=== PATIENT | female | born 1950 | race Caucasian/White ===

== ENCOUNTER 2017-12-23 11:00 | Outpatient (CLI) | payer MEDICARE, OTHER ==
[2017-12-25] MEDS ORDERED: SENN-29 PO (10:06)
[2017-12-25] MEDS ORDERED: PANT40TA4 PO (10:06)
[2017-12-25] MEDS ORDERED: METO10TA3 PO (10:06)
[2017-12-25] MEDS ORDERED: OXYC15TA88 PO (10:06)
[2017-12-25] MEDS ORDERED: LEVE500T PO (10:06)
[2017-12-25] MEDS ORDERED: FERR325T32 PO (10:06)
[2017-12-25] MEDS ORDERED: OXYC30TA85 PO (10:06)
== END 2017-12-23 23:59 | disposition home or self-care (01) ==
LOC: 64 CT 11:00
PROVIDERS: ATTEND Orthopaedic Surgery
DX: S42.232A 3-part fracture of surgical neck of left humerus, initial encounter for closed fracture (principal); M25.512 Pain in left shoulder; W01.0XXA Fall on same level from slipping, tripping and stumbling without subsequent striking against object, initial encounter; Y93.89 Activity, other specified; Y92.89 Other specified places as the place of occurrence of the external cause; Y99.8 Other external cause status
CPT/HCPCS: 73200

== ENCOUNTER 2017-12-27 10:57 | Inpatient (IN) | payer MEDICARE, OTHER ==
[2017-12-25 10:29] LABS: BASOPHILS # (AUTO) 0.1 X10'3 (0-0.2); BASOPHILS % (AUTO) 0.9 % (0-1); EOSINOPHILS # (AUTO) 0.1 X10'3 (0-0.9); EOSINOPHILS % (AUTO) 2.1 % (0-6); LYMPHOCYTES # (AUTO) 0.7 X10'3 (1.1-4.8); LYMPHOCYTES % (AUTO) 10.7 % (21-51); MEAN CORPUSCULAR HEMOGLOBIN 32.3 PG (27.0-31.0); MEAN CORPUSCULAR VOLUME 92.2 FL (78-98); MEAN PLATELET VOLUME 9.2 FL (7.4-10.4); MONOCYTES % (AUTO) 14.9 % (2-12); NEUTROPHILS % (AUTO) 71.4 % (42-75); PRE OP HEMATOCRIT 34.1 % (35.0-45.0); PRE OP HEMOGLOBIN 11.9 g/dL (12.0-16.0); PRE OP PLATELET COUNT 242 X10'3 (140-440); RED CELL DISTRIBUTION WIDTH 12.9 % (11.5-14.5)
[2017-12-25 10:33] LABS: PRE OP PROTIME 10.1 SECONDS (9.0-12.0)
[2017-12-25 10:42] LABS: ALBUMIN 3.3 G/DL (3.4-5.0); ALKALINE PHOSPHATASE 87 IU/L (46-116); BLOOD UREA NITROGEN 9 MG/DL (7-18); BUN/CREATININE RATIO 10.2 (6.6-38.0); CALCIUM 9.3 MG/DL (8.5-10.1); CHLORIDE 103 MMOL/L (99-107); CREATININE 0.88 MG/DL (0.40-0.90); PRE OP ALT 9 U/L (30-65); PRE OP ANION GAP 6 (8-16); PRE OP AST 14 U/L (10-37); PRE OP BILIRUB, TOTAL 0.4 MG/DL (0.0-1.0); PRE OP GLUCOSE 103 MG/DL (70-104); PRE OP POTASSIUM 3.9 MMOL/L (3.4-5.1); PRE OP SODIUM 139 MMOL/L (135-145); TOTAL CARBON DIOXIDE 30.5 MMOL/L (24-32); TOTAL PROTEIN 6.7 G/DL (6.4-8.2); eGFR 64 ML/MIN
[2017-12-27] VITALS (20 sets, daily range): BP systolic 123–180; BP diastolic 54–90
[~2017-12-27] VITALS: Ht 160 cm; Wt 66.3 kg
[~2017-12-27 10:57] MED LIST: FERR325T32 PO; LEVE500T PO; METO10TA3 PO; OXYC15TA88 PO; OXYC30TA85 PO; PANT40TA4 PO; SENN-29 PO; cefazolin/dext.iso 2gm/50ml 50 ML IV ONE; famotidine 20mg tablet PO ONE; ringers solution, lacted 1,000 ML IV SCH
[2017-12-27] MEDS ORDERED: vancomycin 1,000mg inj ONE (11:00)
[2017-12-27] MEDS ORDERED: ketorolac trometh. 30mg/ml inj. ONE (11:00)
[2017-12-27] MEDS ORDERED: ROPIVAcaine 0.5% (5mg/ml) 30ml vial ONE ×2 (11:01→13:18)
[2017-12-27] MEDS ORDERED: LIDOcaine 1% (10mg/ml) 2ml vial ONE (11:10)
[2017-12-27] MEDS ORDERED: BROM3DRO (12:12)
[2017-12-27] MEDS ORDERED: DIFL5DRO LEFTEYE (12:12)
[2017-12-27] MEDS ORDERED: BESI5DRO RIGHTEYE (12:12)
[2017-12-27] MEDS ORDERED: BESI5DRO LEFTEYE (12:23)
[2017-12-27] MEDS ORDERED: cloNIDine hcl/PF 100mcg/ml inj ONE (13:18)
[2017-12-27] MEDS ORDERED: sevoflurane 250ml liquid IH ONE (13:26)
[2017-12-27] MEDS ORDERED: midazolam 2 mg/2 ml injection ONE ×2 (13:26→13:27)
[2017-12-27] MEDS ORDERED: fentaNYL/PF 50MCG/1 ML 2ML syringe ONE (13:26)
[2017-12-27] MEDS ORDERED: propofol inj 20 ML IV ONE (13:27)
[2017-12-27] MEDS ORDERED: tranexamic acid inj. 660 MG in normal saline 100ml IV soln 93.4 ML IV ONE ×4 (13:30)
[2017-12-27] MEDS ORDERED: ringers solution, lacted 1,000 ML IV SCH (14:42)
[2017-12-27] MEDS ORDERED: ondansetron/PF 4mg/2ml inj IV PRN ×2 (14:45→15:30)
[2017-12-27] MEDS ORDERED: morphine 2 MG/ML inj. syringe IV PRN ×2 (14:45)
[2017-12-27] MEDS ORDERED: HYDROmorphone 1 mg/ml syringe IV PRN ×3 (14:45→15:30)
[2017-12-27] MEDS ORDERED: ePHEDrine 50MG/ML INJ. ONE (15:03)
[2017-12-27] MEDS ORDERED: acetaminophen 325mg tablet PO PRN (15:30)
[2017-12-27] MEDS ORDERED: oxyCODONE IR 5mg (immed. release) tablet PO PRN ×2 (15:30)
[2017-12-27] MEDS ORDERED: pantoprazole 40mg Tablet.DR PO SCH (15:30)
[2017-12-27] MEDS ORDERED: tranexamic acid inj. 660 MG in normal saline 100ml IV soln 100 ML IV ONE (15:30)
[2017-12-27] MEDS ORDERED: magnesium hydroxide 30ml (MOM) UD suspension PO PRN (15:30)
[2017-12-27] MEDS ORDERED: diphenhydrAMINE 25mg capsule PO PRN ×2 (15:30)
[2017-12-27] MEDS ORDERED: bisacodyl 10mg suppository rectal RC PRN (15:30)
[2017-12-27] MEDS: DIFLUPREDNATE 0.05% LEFTEYE SCH ×2 (17:00→21:00)
[2017-12-27] MEDS: oxyCODONE IR 5mg (immed. release) tablet PO SCH ×2 (17:00→21:00)
[2017-12-27] MEDS: OPTH LEFTEYE SCH ×2 (17:00→21:00)
[2017-12-27] MEDS: oxyCODONE SR 10mg (sust. release) tab PO SCH (20:18)
[2017-12-27] MEDS: acetaminophen 325mg tablet PO SCH (20:18)
[2017-12-27] MEDS: levetiracetam 250mg tablet PO SCH (20:19)
[2017-12-27] MEDS: ferrous sulfate 325mg tablet PO SCH (20:19)
[2017-12-27] MEDS: celeCOXIB 100mg capsule PO SCH (20:19)
[2017-12-27] MEDS: potassium cl 20mEq in 1/2 NS 1,000 ML IV SCH ×2 (20:20→23:30)
[2017-12-27] MEDS: gabapentin 300mg capsule PO SCH (20:21)
[2017-12-27] MEDS: sennosides/docusate sodium tablet PO SCH (20:25)
[2017-12-27] MEDS ORDERED: metoclopramide 10mg tablet PO SCH (21:00)
[2017-12-27] MEDS ORDERED: sennosides 8.6mg tablet PO SCH (21:00)
[2017-12-27] MEDS: cefazolin 1gm/NS 100mL 100 ML IV SCH (22:56)
[2017-12-28 02:00] VITALS: BP 154/73
[2017-12-28] MEDS: acetaminophen 325mg tablet PO SCH ×2 (02:00→08:01)
[2017-12-28] MEDS: cefazolin 1gm/NS 100mL 100 ML IV SCH (04:55)
[2017-12-28 05:13] LABS: BASOPHILS % (AUTO) 0.2 % (0-1); EOSINOPHILS % (AUTO) 0.2 % (0-6); HEMATOCRIT 33.2 % (35.0-45.0); HEMOGLOBIN 11.3 g/dl (12.0-16.0); LYMPHOCYTES # (AUTO) 0.7 X10'3 (1.1-4.8); LYMPHOCYTES % (AUTO) 8.5 % (21-51); MEAN CORPUSCULAR HEMOGLOBIN 31.7 PG (27.0-31.0); MEAN CORPUSCULAR HGB CONC 34.1 % (33.0-36.5); MEAN CORPUSCULAR VOLUME 92.9 FL (78-98); MEAN PLATELET VOLUME 9.1 FL (7.4-10.4); MONOCYTES % (AUTO) 11.8 % (2-12); NEUTROPHILS # (AUTO) 6.9 X10'3 (1.8-7.7); NEUTROPHILS % (AUTO) 79.3 % (42-75); PLATELET COUNT 279 X10'3 (140-440); RED BLOOD COUNT 3.57 X10'6 (4.20-5.60); RED CELL DISTRIBUTION WIDTH 13.3 % (11.5-14.5); WHITE BLOOD COUNT 8.7 X10'3 (4.5-11.0)
[2017-12-28 05:59] LABS: ANION GAP 10 (8-16); CHLORIDE 99 MMOL/L (99-107); POTASSIUM 4.6 MMOL/L (3.5-5.1); SODIUM 135 MMOL/L (135-145); TOTAL CARBON DIOXIDE 25.9 MMOL/L (24-32)
[2017-12-28 06:00] VITALS: BP 147/69
[2017-12-28] MEDS: potassium cl 20mEq in 1/2 NS 1,000 ML IV SCH (07:30)
[2017-12-28] MEDS: celeCOXIB 100mg capsule PO SCH (07:59)
[2017-12-28] MEDS: ferrous sulfate 325mg tablet PO SCH (08:00)
[2017-12-28] MEDS ORDERED: BESIFLOXACIN HYDROCHLORIDE LEFTEYE SCH (08:00)
[2017-12-28] MEDS: DIFLUPREDNATE 0.05% LEFTEYE SCH (08:00)
[2017-12-28] MEDS: gabapentin 300mg capsule PO SCH (08:00)
[2017-12-28] MEDS: levetiracetam 250mg tablet PO SCH (08:00)
[2017-12-28] MEDS: OPTH LEFTEYE SCH (08:00)
[2017-12-28] MEDS: oxyCODONE SR 10mg (sust. release) tab PO SCH (08:01)
[2017-12-28] MEDS: sennosides/docusate sodium tablet PO SCH (08:01)
[2017-12-28] MEDS: oxyCODONE IR 5mg (immed. release) tablet PO SCH (08:01)
[2017-12-28] MEDS ORDERED: aspirin 325mg tablet PO SCH (08:30)
[2017-12-28 10:00] VITALS: BP 131/73
[2017-12-28] MEDS ORDERED: OXYC-658 PO (11:10)
[2017-12-28] MEDS ORDERED: ASPI-1 PO (11:17)
[2017-12-29] MEDS ORDERED: acetaminophen 325mg tablet PO PRN (15:30)
== END 2017-12-28 12:25 | disposition home or self-care (01) | DRG 493 ==
LOC: PAS 10:57 → ORTHO 4S 15:34
PROVIDERS: ADMIT Orthopaedic Surgery; ATTEND Orthopaedic Surgery
PROC: 3E0T3BZ Introduction of Anesthetic Agent into Peripheral Nerves and Plexi, Percutaneous Approach (ICD-10-PCS; 2017-12-27)
PROC: 0PSD04Z Reposition Left Humeral Head with Internal Fixation Device, Open Approach (ICD-10-PCS; principal; 2017-12-27 13:26)
DX: S42.232A 3-part fracture of surgical neck of left humerus, initial encounter for closed fracture (principal); D62 Acute posthemorrhagic anemia; W01.0XXA Fall on same level from slipping, tripping and stumbling without subsequent striking against object, initial encounter; K21.9 Gastro-esophageal reflux disease without esophagitis; G89.29 Other chronic pain; M54.9 Dorsalgia, unspecified; Z79.899 Other long term (current) drug therapy; Z88.8 Allergy status to other drugs, medicaments and biological substances; Z87.891 Personal history of nicotine dependence; Y93.89 Activity, other specified; Y92.89 Other specified places as the place of occurrence of the external cause; Y99.8 Other external cause status
CPT/HCPCS: 36415; 73060; 76001; 80051; 80053; 85025; 85610; 85730; 86885; 86900; 86901; 87070; 93005; 97116; 97161; 97530; A4565; A7000; C1713; J0690; J0735; J1170; J1885; J2250; J2704; J2795; J3010; J3370; J3490; J7030; J7120; J8597

== ENCOUNTER 2020-02-22 07:24 | Day surgery (SDC) | payer MEDICARE, OTHER ==
[~2020-02-22] VITALS: Ht 160 cm; Wt 68.1 kg
[2020-02-22] VITALS (11 sets, daily range): BP systolic 104–133; BP diastolic 62–80
[~2020-02-22 07:24] MED LIST changes: +ASPI-1 PO; +BESI5DRO LEFTEYE; +BROM3DRO; +DIFL5DRO LEFTEYE; +OXYC-658 PO; -OXYC15TA88 PO; -cefazolin/dext.iso 2gm/50ml 50 ML IV ONE; -famotidine 20mg tablet PO ONE; -ringers solution, lacted 1,000 ML IV SCH
[2020-02-22] MEDS ORDERED: normal saline 1000ml 1,000 ML IV SCH (07:45)
[2020-02-22] MEDS ORDERED: MIDAZolam 1mg/ml 10ml vial IV ONE (07:45)
[2020-02-22] MEDS ORDERED: fentaNYL/PF 50MCG/1 ML 2ML syringe IV ONE (07:45)
[2020-02-22] MEDS ORDERED: APIX5TAB3 PO (08:07)
[2020-02-22] MEDS ORDERED: SOTA80TA PO (08:07)
[2020-02-22] MEDS ORDERED: VITAMIN D PO (08:07)
[2020-02-22] MEDS ORDERED: PREG150C PO (08:07)
[2020-02-22] MEDS ORDERED: CYAN50008 PO (08:07)
[2020-02-22] MEDS ORDERED: FURO-150 PO (08:07)
[2020-02-22 08:29] LABS: ALBUMIN 4.1 G/DL (3.4-5.0); ANION GAP 7 (8-16); BASOPHILS % (AUTO) 0.6 % (0-1); BLOOD UREA NITROGEN 7 MG/DL (7-18); BUN/CREATININE RATIO 7.2 (6.6-38.0); CALCIUM 8.9 MG/DL (8.5-10.1); CHLORIDE 106 MMOL/L (99-107); CREATININE 0.97 MG/DL (0.40-0.90); EOSINOPHILS # (AUTO) 0.1 X10'3 (0-0.9); EOSINOPHILS % (AUTO) 2.7 % (0-6); GLUCOSE 86 MG/DL (70-104); HEMATOCRIT 45.4 % (35.0-45.0); LYMPHOCYTES # (AUTO) 1.4 X10'3 (1.1-4.8); LYMPHOCYTES % (AUTO) 35.7 % (21-51); MEAN CORPUSCULAR HEMOGLOBIN 31.8 PG (27.0-31.0); MEAN CORPUSCULAR HGB CONC 33.1 g/dL (33.0-36.5); MEAN CORPUSCULAR VOLUME 96.1 FL (78-98); MEAN PLATELET VOLUME 8.4 FL (7.4-10.4); MONOCYTES # (AUTO) 0.6 X10'3 (0-0.9); NEUTROPHILS # (AUTO) 1.8 X10'3 (1.8-7.7); PLATELET COUNT 244 X10'3 (140-440); POTASSIUM 3.8 MMOL/L (3.5-5.1); RED BLOOD COUNT 4.73 X10'6 (4.20-5.60); SODIUM 142 MMOL/L (135-145); TOTAL CARBON DIOXIDE 28.8 MMOL/L (24-32); WHITE BLOOD COUNT 3.9 X10'3 (4.5-11.0); eGFR 57 ML/MIN
== END 2020-02-22 10:05 | disposition home or self-care (01) ==
LOC: SSTAY O 07:24 → MED 3N 07:30 → SSTAY O 10:05
PROVIDERS: ATTEND Internal Medicine Interventional Cardiology
DX: I48.91 Unspecified atrial fibrillation (principal)
CPT/HCPCS: 36415; 80048; 85025; 85610; 92960; 94760; J2250; J3010; J7030; 93005

== ENCOUNTER 2024-11-27 08:15 | Outpatient (CLI) | payer MEDICARE, BC ==
[~2024-11-27 08:15] MED LIST changes: +APIX5TAB3 PO; -ASPI-1 PO; -BESI5DRO LEFTEYE; -BROM3DRO; +CYAN50009 PO; -DIFL5DRO LEFTEYE; +FURO-150 PO; -OXYC-658 PO; -OXYC30TA85 PO; -PANT40TA4 PO; +PREG150C PO; -SENN-29 PO; +SOTA80TA PO; +VITAMIN D PO
[2024-11-27] MEDS ORDERED: iohexol 350MG/ML 100ml bottle IV ONE (08:50)
[2024-11-27 09:39] LABS: ALBUMIN 3.1 G/DL (3.4-5.0); ANION GAP 4 (8-16); BLOOD UREA NITROGEN 12 MG/DL (7-18); BUN/CREATININE RATIO 15.2 (10.0-20.0); CALCIUM 8.2 MG/DL (8.5-10.1); CHLORIDE 108 MMOL/L (99-107); CREATININE 0.79 MG/DL (0.40-0.90); GLUCOSE 98 MG/DL (70-104); POTASSIUM 3.7 MMOL/L (3.5-5.1); SODIUM 144 MMOL/L (135-145); TOTAL CARBON DIOXIDE 32.4 MMOL/L (24-32); eGFR 71 ML/MIN
== END 2024-11-27 23:59 | disposition home or self-care (01) ==
LOC: RAD 08:15
PROVIDERS: ATTEND Internal Medicine Interventional Cardiology
DX: I10 Essential (primary) hypertension (principal); Q20.6 Isomerism of atrial appendages
CPT/HCPCS: 36415; 75572; 80048; Q9967